=== PATIENT | female | born 2000 | race Hispanic/Latino ===

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

== ENCOUNTER 2019-04-02 23:28 | Emergency (ER) | payer MEDICAID, SELFPAY | END 2019-04-03 01:04 | disposition short-term general hospital (02) | LOC: MADERS 23:28 | DX: T76.21XA Adult sexual abuse, suspected, initial encounter (principal); F10.129 Alcohol abuse with intoxication, unspecified; F41.9 Anxiety disorder, unspecified; F20.9 Schizophrenia, unspecified; F31.9 Bipolar disorder, unspecified | CPT/HCPCS: 99285 ==